=== PATIENT | female | born 1955 | race Caucasian/White ===

== ENCOUNTER → 2025-06-29 | Outpatient (CLI) | payer MEDICARE, BC | LOC: M SLEEP HO 12:13 | PROVIDERS: ATTEND Internal Medicine Cardiovascular Disease | DX: I27.20 Pulmonary hypertension, unspecified (principal) ==

== ENCOUNTER → 2025-07-05 | Outpatient (CLI) | payer MEDICARE, BC ==
[~2025-07-05] MED LIST: CARDIAC STRESS TEST RESCUE BOX 1 KIT EA XX ONE
== END ==
LOC: M CARPUL 09:38
PROVIDERS: ATTEND Internal Medicine Cardiovascular Disease
DX: R94.31 Abnormal electrocardiogram [ECG] [EKG] (principal)

== ENCOUNTER → 2025-07-09 | Outpatient (CLI) | payer MEDICARE, BC | LOC: M CARPUL 09:02 → EDUNIT# 08-22 09:00 | PROVIDERS: ATTEND Internal Medicine Cardiovascular Disease | DX: R94.31 Abnormal electrocardiogram [ECG] [EKG] (principal); I27.20 Pulmonary hypertension, unspecified ==